=== PATIENT | female | born 1955 | race Caucasian/White ===

== ENCOUNTER 2016-07-06 10:48 | Emergency (ER) | payer OTHER ==
[2016-07-06 10:59] VITALS: BP 155/94; RESP 16
[2016-07-06] MEDS ORDERED: PANTOPRAZOLE SODIUM 40 MG in NS 100 ML IV ONE (11:17)
[2016-07-06] MEDS ORDERED: ONDANSETRON 4 MG/2 ML VIAL IVP ONE (11:17)
[2016-07-06] MEDS ORDERED: NS 1,000 ML IV ONE (11:17)
--- NOTE | 2016-07-06 11:21 | EDPHY ---
H & P Time Seen by Provider: 07/06/16 11:01 HPI/ROS: CHIEF COMPLAINT: Vomiting, diarrhea, headache HISTORY OF PRESENT ILLNESS: 61-year-old female presents to the emergency department by private vehicle with multiple episodes of vomiting and diarrhea. Symptoms started around 9:00 p.m. last night. She initially had some watery diarrhea followed by 3 episodes of vomiting. She still feels nauseous. She denies blood in her stool, melena or hematemesis. No known ill contacts. She is also complaining of diffuse headache with pain behind her left eye. Patient has a history of headaches which she believes are tension in origin. She feels that this is the same typical headache that she gets and she typically has pain behind her left eye when she does get headaches. She reports no trauma. No neck pain. She denies feeling lightheaded or dizzy. Denies chest pain or difficulty breathing. The patient was scheduled to go to [place] today and is requesting a note for the airlines. REVIEW OF SYSTEMS: Constitutional: No fever, no chills. Eyes: No double or blurry vision. ENT: No sore throat. Respiratory: No cough, no shortness of breath. Cardiac: No chest pain. Gastrointestinal: Vomiting, diarrhea Genitourinary: No dysuria. Musculoskeletal: No neck or back pain. Skin: No rashes. Neurological: headache. Past Medical/Surgical History: Stage IV breast cancer 1994, mastectomy, hiatal hernia Social History: Single and lives in [place] Smoking Status: Never smoked Physical Exam: General Appearance: Alert, no distress. 155/94, heart rate 101, 94% on room air , afebrile, nontoxic-appearing. Mentating normally and answering questions appropriately. Eyes: Pupils equal and round. Extraocular motions are all intact. ENT: Mouth: Mucous membranes moist. Respiratory: No wheezing, rhonchi, or rales, lungs are clear to auscultation. Cardiovascular: Regular rate and rhythm. Gastrointestinal: Abdomen is soft and nontender, no masses, no rebound or guarding, bowel sounds normal. No CVA tenderness bilaterally. Neurological: Alert and oriented x 3, cranial nerves II through XII grossly intact Skin: Warm and dry, no rashes. Musculoskeletal: Nontender to palpate along the cervical, thoracic or lumbar spine. Neck is supple. Extremities: Full range of motion and no peripheral edema. Psychiatric: Patient is oriented X 3, there is no agitation. Constitutional: Initial Vital Signs Temperature (C) 36.7 C 07/06/16 10:56 Heart Rate 101 H 07/06/16 10:56 Respiratory Rate 16 07/06/16 10:56 Blood Pressure 155/94 H 07/06/16 10:56 O2 Sat (%) 94 07/06/16 10:56 O2 Delivery Mode Room Air Allergies/Adverse Reactions: No Known Allergies Allergy (Unverified 07/14/11 17:54) Home Medications: Medication Instructions Recorded Letrozole [Femara] 0 mg PO DAILY 07/14/11 Calcium6 Daily 11/24/11 Herbals/Supplements -Info Only 1 each PO AD 11/24/11 Hydrocodone/APAP 5/325 [[place] 1 - 2 tab PO Q4PRN #20 tab 11/24/11 5/325 (*)] LORazepam [Ativan 0.5 mg (RX)] 0.5 mg PO HS PRN 11/24/11 Venlafaxine Xr [Effexor Xr 75MG 75 mg PO DAILY 11/24/11 (RX)] oxyCODONE/APAP 5/325 [Percocet 1 tab PO Q4-6PRN PRN #20 tab 11/24/11 5/325 (*)] Ondansetron Odt [Zofran Odt] 4 mg PO Q4PRN #8 tab 07/06/16 Medical Decision Making ED Course/Re-evaluation: 61-year-old female presents to the emergency department with multiple episodes of vomiting and diarrhea since 9:00 p.m. last night. Clinically she appears dehydrated. An IV has been established the patient received IV normal saline. Laboratory studies are pending. The patient has a history of intermittent headaches which she believes is related to tension. She has had this same type of headache in the past. She felt that was a gradual in onset and has had the pain associated with the left eye in the past with headaches as well. The patient did not want any imaging studies. I feel that this is reasonable given that she has had these symptoms many times in the past. Patient has a normal neurologic examination. Patient received IV normal saline and 4 mg of Zofran. She was feeling much better. Her headache completely resolved. She is no longer feeling nauseous and was tolerating p.o. fluids. She is comfortable being discharged home. She was requesting a note for her missed flight today. Differential Diagnosis: Including but not limited to viral gastroenteritis, dehydration, gastritis, acute appendicitis Headache including but not limited to subarachnoid hemorrhage, migraine headache , tension headache and infectious causes such as meningitis, pharyngitis and sinusitis. - Data Points Laboratory Results: Laboratory Results 07/06/16 11:25 07/06/16 11:25 07/06/16 07/06/16 11:25 11:25 WBC 7.04 10^3/uL 10^3/uL (3.80-9.50) RBC 5.02 10^6/uL 10^6/uL (4.18-5.33) Hgb 16.0 g/dL g/dL (12.6-16.3) Hct 46.2 % % (38.0-47.0) MCV 92.0 fL fL (81.5-99.8) MCH 31.9 pg pg (27.9-34.1) MCHC 34.6 g/dL g/dL (32.4-36.7) RDW 13.3 % % (11.5-15.2) Plt Count 195 10^3/uL 10^3/uL (150-400) MPV 8.8 fL fL (8.7-11.7) Neut % (Auto) 73.1 % % (39.3-74.2) Lymph % (Auto) 19.0 % % (15.0-45.0) [place] % (Auto) 6.3 % % (4.5-13.0) Eos % (Auto) 0.6 % % (0.6-7.6) Baso % (Auto) 0.6 % % (0.3-1.7) Nucleat RBC Rel Count 0.0 % % (0.0-0.2) Absolute Neuts (auto) 5.15 10^3/uL 10^3/uL (1.70-6.50) Absolute Lymphs (auto) 1.34 10^3/uL 10^3/uL (1.00-3.00) Absolute Monos (auto) 0.44 10^3/uL 10^3/uL (0.30-0.80) Absolute Eos (auto) 0.04 10^3/uL 10^3/uL (0.03-0.40) Absolute Basos (auto) 0.04 10^3/uL 10^3/uL (0.02-0.10) Absolute Nucleated RBC 0.00 10^3/uL 10^3/uL (0-0.01) Immature Gran % 0.4 % % (0.0-1.1) Immature Gran # 0.03 10^3/uL 10^3/uL (0.00-0.10) Sodium 139 mEq/L mEq/L (134-144) Potassium 4.7 mEq/L mEq/L (3.5-5.2) Chloride 106 mEq/L mEq/L (97-110) Carbon Dioxide 22 mEq/l mEq/l (22-31) Anion Gap 11 mEq/L mEq/L (8-16) BUN 25 mg/dL H mg/dL (7-23) Creatinine 0.7 mg/dL mg/dL (0.6-1.0) Estimated GFR > 60 Glucose 106 mg/dL H mg/dL (70-100) Calcium 9.7 mg/dL mg/dL (8.5-10.4) Medications Given: Discontinued Medications Sodium Chloride (Ns) 1,000 mls @ 0 mls/hr IV ONCE ONE PRN Reason: Wide Open Stop: 07/06/16 11:18 Last Admin: 07/06/16 11:40 Dose: 1,000 mls Pantoprazole Sodium 40 mg/ (Sodium Chloride) 100 mls @ 200 mls/hr IV EDNOW ONE Stop: 07/06/16 11:46 Last Admin: 07/06/16 11:51 Dose: 100 mls Ondansetron HCl (Zofran) 4 mg IVP EDNOW ONE Stop: 07/06/16 11:18 Last Admin: 07/06/16 11:51 Dose: 4 mg Departure - Departure Disposition: Home, Routine, Self-Care Clinical Impression: Acute gastroenteritis Condition: Good Instructions: Gastroenteritis (ED) Additional Instructions: Clear liquids and slowly advance diet as tolerated. Return to the emergency department if you developed recurring vomiting, diarrhea, or if you feel worse in any way. Referrals: Kenya Francis MD [Medical Doctor] - 2-3 days, if not improved ( Primary care provider javascript application developer) Stand Alone Forms: Airline Excuse Prescriptions: Ondansetron Odt [Zofran Odt] 4 mg PO Q4PRN #8 tab
[2016-07-06 11:37] LABS: % IMMATURE GRANULYOCYTES 0.4 % (0.0-1.1); ABSOLUTE IMMATURE GRANULOCYTES 0.03 10^3/uL (0.00-0.10); ADD DIFF? NO; ADD MORPH? NO; ADD SCAN? NO; ATYPICAL LYMPHOCYTE FLAG 10 (0-99); FRAGMENT RBC FLAG 0 (0-99); HEMATOCRIT 46.2 % (38.0-47.0); LEFT SHIFT FLG 0 (0-99); LIPEMIA HEMOLYSIS FLAG 90 (0-99); MEAN CELL HEMOGLOBIN 31.9 pg (27.9-34.1); MEAN CELL HEMOGLOBIN CONCENTR. 34.6 g/dL (32.4-36.7); MEAN PLATELET VOLUME 8.8 fL (8.7-11.7); PLATELET CLUMPS FLAG 0 (0-99); PLATELET COUNT 195 10^3/uL (150-400); RED BLOOD CELL COUNT 5.02 10^6/uL (4.18-5.33); RED CELL DISTRIBUTION WIDTH 13.3 % (11.5-15.2)
[2016-07-06 11:53] LABS: ANION GAP 11 mEq/L (8-16); CALCIUM 9.7 mg/dL (8.5-10.4); CARBON DIOXIDE 22 mEq/l (22-31); CHLORIDE 106 mEq/L (97-110); CREATININE 0.7 mg/dL (0.6-1.0); GLOMERULAR FILTRATION RATE > 60; GLUCOSE 106 mg/dL (70-100); POTASSIUM 4.7 mEq/L (3.5-5.2); SODIUM 139 mEq/L (134-144)
[2016-07-06 13:24] VITALS: PULSE 90; TEMP 98.6; O2SAT 97
== END 2016-07-06 13:25 | disposition home or self-care (01) ==
DX: K52.9 Noninfective gastroenteritis and colitis, unspecified (principal); Z85.3 Personal history of malignant neoplasm of breast
CPT/HCPCS: 96365; 96375; 99284; J2405

== ENCOUNTER 2016-11-05 21:31 | Emergency (ER) | payer OTHER ==
[2016-11-05 21:42] VITALS: TEMP 99.5
[2016-11-05] MEDS ORDERED: KETOROLAC 30 MG/1 ML SDV IVP ONE (22:48)
[2016-11-05] MEDS ORDERED: ONDANSETRON 4 MG/2 ML VIAL IVP ONE (22:48)
[2016-11-05] MEDS ORDERED: NS 1,000 ML IV ONE ×2 (22:48)
--- NOTE | 2016-11-05 22:51 | EDPHY ---
H & P Stated Complaint: LLQ since Thursday with anorexia; Hx of diverticulitis Time Seen by Provider: 11/05/16 22:31 HPI/ROS: HPI The patient presents with 3 days of lower abdominal pain which is greater in her left lower quadrant than the right. It is been constant, achy in nature, does not radiate and feels tender to the touch. She feels nauseated without vomiting. She does not have any diarrhea. She thinks she may be having subjective fevers. She has a history of diverticulitis about 6 years ago when she was living out of state in [place]. She was treated with antibiotics for this and did not require any operation.. REVIEW OF SYSTEMS Constitutional: No fever, no chills. Eyes: No discharge. ENT: No sore throat. Cardiovascular: No chest pain, no palpitations. Respiratory: No cough, no shortness of breath. Gastrointestinal: See HPI Genitourinary: No hematuria. Musculoskeletal: No back pain. Skin: No rashes. Neurological: No headache. PMHx: History of breast cancer, lower back pain PHYSICAL General Appearance: Alert, no distress Eyes: Pupils equal and round no pallor or injection ENT, Mouth: Mucous membranes moist Respiratory: There are no retractions, lungs are clear to auscultation Cardiovascular: Tachycardic with regular rhythm Gastrointestinal: Abdomen is soft with tenderness in the left lower quadrant which is moderate without rebound or guarding Neurological: A&O, moves all extremities Skin: Warm and dry, no rashes Musculoskeletal: Neck is supple non tender Extremities: symmetrical, full range of motion Psychiatric: Patient is oriented X 3, there is no agitation Source: Patient Exam Limitations: No limitations - Personal History Current Tetanus/Diphtheria Vaccine: Yes Tetanus Vaccine Date: 2009 - Medical/Surgical History Hx Asthma: No Hx Chronic Respiratory Disease: No Hx Diabetes: No Hx Cardiac Disease: No Hx Renal Disease: No Hx Cirrhosis: No Hx Alcoholism: No Hx HIV/AIDS: No Hx Splenectomy or Spleen Trauma: No Other PMH: Stage 4 breast ca dx 1994 with bilateral mastectomies. hip and femur Fx repairs. GERD. diverticulitus - Social History Smoking Status: Never smoked Constitutional: Initial Vital Signs Temperature (C) 37.5 C 11/05/16 21:39 Heart Rate 122 H 11/05/16 21:39 Respiratory Rate 15 11/05/16 21:39 Blood Pressure 112/72 11/05/16 21:39 O2 Sat (%) 96 11/05/16 21:39 O2 Delivery Mode Room Air O2 (L/minute) 2 Allergies/Adverse Reactions: No Known Allergies Allergy (Unverified 07/14/11 17:54) Home Medications: Medication Instructions Recorded Letrozole [Femara] 0 mg PO DAILY 07/14/11 Calcium6 Daily 11/24/11 Herbals/Supplements -Info Only 1 each PO AD 11/24/11 Venlafaxine Xr [Effexor Xr 75MG 75 mg PO DAILY 11/24/11 (RX)] oxyCODONE/APAP 5/325 [Percocet 1 tab PO Q4-6PRN PRN #20 tab 11/24/11 5/325 (*)] Ambien 11/05/16 Amoxicillin/Clavulanate Pot 875 mg PO BID #20 tab 11/06/16 [Augmentin 875 MG TAB (*)] Medical Decision Making - Diagnostics Imaging Results: Imaging Impressions Abdomen CT 11/05/16 22:48 Impression: 1. Sigmoid diverticulitis with no visible perforation or abscess. 2. Indeterminate sclerotic lesions most conspicuous in L5 and in the sacrum. Given the patient's history of breast cancer, these are suspicious for metastases. If these lesions have not been previously evaluated on outside imaging, recommend bone scan or PET scan. 3. Additional findings as above. Findings discussed with Rona Chinchilla MD 11/06/2016 at 0:06. Differential Diagnosis: This is a 61-year-old female with past medical history of breast cancer and diverticulitis who presents with 3 days of left lower quadrant abdominal pain associated with nausea and subjective fevers. On exam, she is tachycardic, she has tenderness in the left lower quadrant. Differential diagnosis includes diverticulitis, urinary tract infection, gastroenteritis. In the emergency room, patient was given IV fluids and medication for pain. Labs were checked and revealed a mild leukocytosis. CT scan of her abdomen pelvis performed with IV contrast demonstrates diverticulitis without any abscess. I have explained the results to the patient. I reassessed her and she is feeling much better. I will discharge her with Augmentin for diverticulitis and give her her 1st dose here. I have given her information for Gastroenterology as needed. - Data Points Laboratory Results: Laboratory Results 11/05/16 23:13 11/05/16 23:13 11/05/16 11/05/16 23:13 23:13 WBC 13.90 10^3/uL H 10^3/uL (3.80-9.50) RBC 4.61 10^6/uL 10^6/uL (4.18-5.33) Hgb 14.7 g/dL g/dL (12.6-16.3) Hct 42.6 % % (38.0-47.0) MCV 92.4 fL fL (81.5-99.8) MCH 31.9 pg pg (27.9-34.1) MCHC 34.5 g/dL g/dL (32.4-36.7) RDW 13.4 % % (11.5-15.2) Plt Count 155 10^3/uL 10^3/uL (150-400) MPV 9.3 fL fL (8.7-11.7) Neut % (Auto) 76.6 % H % (39.3-74.2) Lymph % (Auto) 12.4 % L % (15.0-45.0) [place] % (Auto) 10.0 % % (4.5-13.0) Eos % (Auto) 0.2 % L % (0.6-7.6) Baso % (Auto) 0.4 % % (0.3-1.7) Nucleat RBC Rel Count 0.0 % % (0.0-0.2) Absolute Neuts (auto) 10.66 10^3/uL H 10^3/uL (1.70-6.50) Absolute Lymphs (auto) 1.72 10^3/uL 10^3/uL (1.00-3.00) Absolute Monos (auto) 1.39 10^3/uL H 10^3/uL (0.30-0.80) Absolute Eos (auto) 0.03 10^3/uL 10^3/uL (0.03-0.40) Absolute Basos (auto) 0.05 10^3/uL 10^3/uL (0.02-0.10) Absolute Nucleated RBC 0.00 10^3/uL 10^3/uL (0-0.01) Immature Gran % 0.4 % % (0.0-1.1) Immature Gran # 0.05 10^3/uL 10^3/uL (0.00-0.10) Sodium 134 mEq/L mEq/L (134-144) Potassium 4.7 mEq/L mEq/L (3.5-5.2) Chloride 101 mEq/L mEq/L (97-110) Carbon Dioxide 20 mEq/l L mEq/l (22-31) Anion Gap 13 mEq/L mEq/L (8-16) BUN 15 mg/dL mg/dL (7-23) Creatinine 0.8 mg/dL mg/dL (0.6-1.0) Estimated GFR > 60 Glucose 95 mg/dL mg/dL (70-100) Calcium 9.4 mg/dL mg/dL (8.5-10.4) Total Bilirubin 1.5 mg/dL H mg/dL (0.1-1.4) Conjugated Bilirubin 0.4 mg/dL mg/dL (0.0-0.5) Unconjugated Bilirubin 1.1 mg/dL mg/dL (0.0-1.1) AST 36 IU/L IU/L (14-46) ALT 33 IU/L IU/L (9-52) Alkaline Phosphatase 68 IU/L IU/L (38-126) Total Protein 7.1 g/dL g/dL (6.3-8.2) Albumin 4.3 g/dL g/dL (3.5-5.0) Lipase 55.0 IU/L IU/L (23-300) Specimen Hemolysis 100 Medications Given: Discontinued Medications Amoxicillin/Clavulanate Potassium (Augmentin 875mg) 875 mg PO EDNOW ONE PRN Reason: Protocol Stop: 11/06/16 00:51 Last Admin: 11/06/16 01:18 Dose: 875 mg Sodium Chloride (Ns) 1,000 mls @ 0 mls/hr IV EDNOW ONE; Wide Open PRN Reason: Protocol Stop: 11/05/16 22:49 Last Admin: 11/05/16 23:19 Dose: 1,000 mls Sodium Chloride (Ns) 1,000 mls @ 0 mls/hr IV EDNOW ONE; Wide Open PRN Reason: Protocol Stop: 11/05/16 22:49 Last Admin: 11/05/16 23:18 Dose: 1,000 mls Ketorolac Tromethamine (Toradol) 15 mg IVP EDNOW ONE Stop: 11/05/16 22:49 Last Admin: 11/05/16 23:17 Dose: 15 mg Ondansetron HCl (Zofran) 4 mg IVP EDNOW ONE Stop: 11/05/16 22:49 Last Admin: 11/05/16 23:18 Dose: 4 mg Ondansetron HCl (Zofran Odt 4 Mg Prepack#2) 1 btl TAKEHOME EDNOW ONE Stop: 11/06/16 02:13 Last Admin: 11/06/16 02:13 Dose: 1 btl Departure - Departure Disposition: Home, Routine, Self-Care Clinical Impression: Bone lesion Diverticulitis Qualifiers: Diverticulitis site: large intestine Diverticulitis bleeding: without bleeding Diverticulitis complication: without perforation or abscess Qualified Code(s): K57.32 - Diverticulitis of large intestine without perforation or abscess without bleeding Condition: Good Instructions: Diverticulitis (ED), Diverticulitis Diet (ED) Additional Instructions: Please make sure to drink plenty of fluids. Return if your worse in any way. Take the antibiotic as prescribed. You should follow up with your primary care doctor because on your CT scan we did notice that the L5 vertebrae has some damage to it. Referrals: Asia Phillips MD [Primary Care Provider] - As per Instructions Dougie Duvall MD [[facility] [place] Care Provider] - As per Instructions Prescriptions: Amoxicillin/Clavulanate Pot [Augmentin 875 MG TAB (*)] 875 mg PO BID #20 tab
[2016-11-05 23:19] LABS: % IMMATURE GRANULYOCYTES 0.4 % (0.0-1.1); ABSOLUTE IMMATURE GRANULOCYTES 0.05 10^3/uL (0.00-0.10); ADD DIFF? NO; ADD MORPH? NO; ADD SCAN? NO; ATYPICAL LYMPHOCYTE FLAG 0 (0-99); FRAGMENT RBC FLAG 0 (0-99); HEMATOCRIT 42.6 % (38.0-47.0); HEMOGLOBIN 14.7 g/dL (12.6-16.3); LEFT SHIFT FLG 20 (0-99); LIPEMIA HEMOLYSIS FLAG 90 (0-99); MEAN CELL HEMOGLOBIN 31.9 pg (27.9-34.1); MEAN CELL HEMOGLOBIN CONCENTR. 34.5 g/dL (32.4-36.7); MEAN CELL VOLUME 92.4 fL (81.5-99.8); MEAN PLATELET VOLUME 9.3 fL (8.7-11.7); PLATELET CLUMPS FLAG 0 (0-99); PLATELET COUNT 155 10^3/uL (150-400); RED BLOOD CELL COUNT 4.61 10^6/uL (4.18-5.33); RED CELL DISTRIBUTION WIDTH 13.4 % (11.5-15.2)
[2016-11-05 23:30] LABS: ALANINE AMINOTRANSFERASE 33 IU/L (9-52); ALBUMIN 4.3 g/dL (3.5-5.0); ALKALINE PHOSPHATASE 68 IU/L (38-126); ANION GAP 13 mEq/L (8-16); ASPARTATE AMINOTRANSFERASE 36 IU/L (14-46); BILIRUBIN,TOTAL 1.5 mg/dL (0.1-1.4); BILIRUBIN-CONJUGATED 0.4 mg/dL (0.0-0.5); BILIRUBIN-UNCONJUGATED 1.1 mg/dL (0.0-1.1); CALCIUM 9.4 mg/dL (8.5-10.4); CARBON DIOXIDE 20 mEq/l (22-31); CHLORIDE 101 mEq/L (97-110); CREATININE 0.8 mg/dL (0.6-1.0); GLOMERULAR FILTRATION RATE > 60; GLUCOSE 95 mg/dL (70-100); POTASSIUM 4.7 mEq/L (3.5-5.2); SODIUM 134 mEq/L (134-144); SPECIMEN HEMOLYSIS 100; TOTAL PROTEIN 7.1 g/dL (6.3-8.2)
[2016-11-05] MEDS ORDERED: IOPAMIDOL (ISOVUE-300) 100 ML BTL ONE (23:30)
[2016-11-06] MEDS ORDERED: AMOXICILLIN/CLAVULANATE POT 875/125 MG TAB PO ONE (00:50)
[2016-11-06 01:19] VITALS: BP 111/71; PULSE 98; RESP 20; O2SAT 96
[2016-11-06] MEDS ORDERED: ONDANSETRON 4MG PREPACK#2 BTL TAKEHOME ONE ×2 (02:09→02:12)
== END 2016-11-06 02:14 | disposition home or self-care (01) ==
DX: K57.32 Diverticulitis of large intestine without perforation or abscess without bleeding (principal); M89.9 Disorder of bone, unspecified; E86.9 Volume depletion, unspecified; Z85.3 Personal history of malignant neoplasm of breast
CPT/HCPCS: 74177; 96361; 96374; 96375; 99285; J1885; J2405; Q9967

== ENCOUNTER → 2017-10-28 | Outpatient (CLI) | payer OTHER | LOC: FIMAGING 13:07 | PROVIDERS: ATTEND Internal Medicine Cardiovascular Disease | DX: R06.02 Shortness of breath (principal); R60.9 Edema, unspecified ==

== ENCOUNTER → 2017-10-30 | Outpatient (CLI) | payer OTHER ==
[~2017-10-30] MED LIST: IOPAMIDOL (ISOVUE 370) 100 ML BTL IV ONE
== END ==
LOC: FIMAGING 07:54
PROVIDERS: ATTEND Internal Medicine Cardiovascular Disease
DX: R06.02 Shortness of breath (principal); R79.89 Other specified abnormal findings of blood chemistry
CPT/HCPCS: 71275; Q9967

== ENCOUNTER 2017-12-21 17:18 | Emergency (ER) | payer OTHER ==
[2017-12-21] MEDS ORDERED: ONDANSETRON 4 MG/2 ML VIAL IVP ONE (17:31)
[2017-12-21] MEDS ORDERED: KETOROLAC 30 MG/1 ML SDV IVP ONE (17:31)
[2017-12-21] MEDS ORDERED: AMOXICILLIN/CLAVULANATE POT 875/125 MG TAB PO ONE (17:32)
--- NOTE | 2017-12-21 17:34 | EDPHY ---
H & P Stated Complaint: abdominal pain and nausea starting last night Time Seen by Provider: 12/21/17 17:24 HPI/ROS: CHIEF COMPLAINT: Abdominal pain HISTORY OF PRESENT ILLNESS: Patient is a 62-year-old female who comes to the emergency department complaining of abdominal pain in her left lower quadrant very similar to year ago which she was treated for diverticulitis. Her symptoms resolved last time with Augmentin. She has not had any history of abdominal surgeries. No fevers. She feels slightly nauseous but has not vomited. No diarrhea. No blood in her stool. No urinary symptoms. Her symptoms began about 12 hr ago and have been constant. Severity: Moderate Modifying factors: None REVIEW OF SYSTEMS: Constitutional: denies: chills, fever, recent illness, recent injury EENTM: denies: blurred vision, double vision, nose congestion Respiratory: denies: cough, shortness of breath Cardiac: denies: chest pain, irregular heart rate, lightheadedness, palpitations Gastrointestinal/Abdominal: See HPI denies: diarrhea, nausea, vomiting, blood streaked stools Genitourinary: denies: dysuria, frequency, hematuria, pain Musculoskeletal: denies: joint pain, muscle pain Skin: denies: lesions, rash, jaundice, bruising Neurological: denies: headache, numbness, paresthesia, tingling, dizziness, weakness Hematologic/Lymphatic: denies: blood clots, easy bleeding, easy bruising Immunologic/allergic: denies: HIV/AIDS, transplant 10 systems reviewed and negative except as noted EXAM: GENERAL: Well-appearing, well-nourished and in no acute distress. HEAD: Atraumatic, normocephalic. EYES: Pupils equal round and reactive to light, extraocular movements intact, sclera anicteric, conjunctiva are normal. ENT: TMs normal, nares patent, oropharynx clear without exudates. Moist mucous membranes. NECK: Normal range of motion, supple without lymphadenopathy or JVD. LUNGS: Breath sounds clear to auscultation bilaterally and equal. No wheezes rales or rhonchi. HEART: Regular rate and rhythm without murmurs, rubs or gallops. ABDOMEN: Left lower quadrant pain but Soft, nontender, normoactive bowel sounds. No guarding, no rebound. No masses appreciated. BACK: No CVA tenderness, no spinal tenderness, step-offs or deformities EXTREMITIES: Normal range of motion, no pitting or edema. No clubbing or cyanosis. NEUROLOGICAL: Cranial nerves II through XII grossly intact. Normal speech, normal gait. 5/5 strength, normal movement in all extremities, normal sensation , normal reflexes PSYCH: Normal mood, normal affect. SKIN: Warm, dry, normal turgor, no visible rashes or lesions. Source: Patient Exam Limitations: No limitations - Personal History Current Tetanus/Diphtheria Vaccine: Yes Current Tetanus Diphtheria and Acellular Pertussis (TDAP): Yes Tetanus Vaccine Date: 2009 - Medical/Surgical History Hx Asthma: No Hx Chronic Respiratory Disease: No Hx Diabetes: No Hx Cardiac Disease: No Hx Renal Disease: No Hx Cirrhosis: No Hx Alcoholism: No Hx HIV/AIDS: No Hx Splenectomy or Spleen Trauma: No Other PMH: Stage 4 breast ca dx 1994 with bilateral mastectomies. hip and femur Fx repairs. GERD. diverticulitus, CHF - Family History Significant Family History: No pertinent family hx - Social History Smoking Status: Never smoked Alcohol Use: Sober Drug Use: None Constitutional: Initial Vital Signs Temperature (C) 36.2 C 12/21/17 17:21 Heart Rate 112 H 12/21/17 17:21 Respiratory Rate 18 12/21/17 17:21 Blood Pressure 96/78 L 12/21/17 17:21 O2 Sat (%) 94 12/21/17 17:21 O2 Delivery Mode Room Air Allergies/Adverse Reactions: No Known Allergies Allergy (Verified 12/21/17 17:19) Home Medications: Medication Instructions Recorded Letrozole [Femara] 0 mg PO DAILY 07/14/11 Venlafaxine Xr [Effexor Xr 75MG 75 mg PO DAILY 11/24/11 (RX)] Ambien 11/05/16 Amoxicillin/Clavulanate Pot 875 mg PO BID #14 tab 12/21/17 [Augmentin 875Mg] Coreg 12/21/17 Lasix 12/21/17 Losartan Potassium 12/21/17 Medical Decision Making ED Course/Re-evaluation: The patient's exam and history are consistent with the return of diverticulitis. Will obtain lab work and treat but she is declining imaging which I believe is reasonable. We discussed the risks and benefits. 6:15 p.m. the patient is feeling much better. We discussed antibiotic treatment and follow up with her primary in the next 48 hr. We discussed indications for returning here. She continues to decline imaging which I believe is reasonable. Her abdomen remains nontender. Patient does have a few white cells in her urine but has no urinary symptoms. I will send for cultures. Differential Diagnosis: Partial list of the Differential diagnosis considered include but were not limited to; diverticulitis, constipation, obstruction and although unlikely based on the history and physical exam, I also considered ischemia, volvulus, appendicitis, ovarian cyst, kidney stone, urinary tract infection. I discussed these differential diagnoses and the plan with the patient as well as the usual and expected course. The patient understands that the diagnosis is provisional and that in medicine we are not always correct and that further workup is often warranted. Usual and customary warnings were given. All of the patient's questions were answered. The patient was instructed to return to the emergency department should the symptoms at all worsen or return, otherwise to followup with the physician as we discussed. - Data Points Laboratory Results: Laboratory Results 12/21/17 17:40 12/21/17 17:40 12/21/17 12/21/17 12/21/17 18:03 17:40 17:40 WBC 12.21 10^3/uL H 10^3/uL (3.80-9.50) RBC 4.93 10^6/uL 10^6/uL (4.18-5.33) Hgb 15.6 g/dL g/dL (12.6-16.3) Hct 44.2 % % (38.0-47.0) MCV 89.7 fL fL (81.5-99.8) MCH 31.6 pg pg (27.9-34.1) MCHC 35.3 g/dL g/dL (32.4-36.7) RDW 13.6 % % (11.5-15.2) Plt Count 195 10^3/uL 10^3/uL (150-400) MPV 8.8 fL fL (8.7-11.7) Neut % (Auto) 73.3 % % (39.3-74.2) Lymph % (Auto) 16.9 % % (15.0-45.0) [place] % (Auto) 8.4 % % (4.5-13.0) Eos % (Auto) 0.6 % % (0.6-7.6) Baso % (Auto) 0.4 % % (0.3-1.7) Nucleat RBC Rel Count 0.0 % % (0.0-0.2) Absolute Neuts (auto) 8.96 10^3/uL H 10^3/uL (1.70-6.50) Absolute Lymphs (auto) 2.06 10^3/uL 10^3/uL (1.00-3.00) Absolute Monos (auto) 1.02 10^3/uL H 10^3/uL (0.30-0.80) Absolute Eos (auto) 0.07 10^3/uL 10^3/uL (0.03-0.40) Absolute Basos (auto) 0.05 10^3/uL 10^3/uL (0.02-0.10) Absolute Nucleated RBC 0.00 10^3/uL 10^3/uL (0-0.01) Immature Gran % 0.4 % % (0.0-1.1) Immature Gran # 0.05 10^3/uL 10^3/uL (0.00-0.10) Sodium 135 mEq/L mEq/L (135-145) Potassium 3.9 mEq/L mEq/L (3.3-5.0) Chloride 100 mEq/L mEq/L (97-110) Carbon Dioxide 28 mEq/l mEq/l (22-31) Anion Gap 7 mEq/L L mEq/L (8-16) BUN 16 mg/dL mg/dL (7-23) Creatinine 0.8 mg/dL mg/dL (0.6-1.0) Estimated GFR > 60 Glucose 112 mg/dL H mg/dL (70-100) Calcium 9.3 mg/dL mg/dL (8.5-10.4) Urine Color YELLOW Urine Appearance HAZY Urine pH 7.0 (5.0-7.5) Ur Specific [place] 1.014 (1.002-1.030) Urine Protein NEGATIVE (NEGATIVE) Urine Ketones NEGATIVE (NEGATIVE) Urine Blood NEGATIVE (NEGATIVE) Urine Nitrate NEGATIVE (NEGATIVE) Urine Bilirubin NEGATIVE (NEGATIVE) Urine Urobilinogen NEGATIVE EU EU (0.2-1.0) Ur Leukocyte Esterase 1+ H (NEGATIVE) Urine RBC 1-3 /hpf /hpf (0-3) Urine WBC 5-10 /hpf H /hpf (0-3) Ur Epithelial Cells TRACE /lpf /lpf (NONE-1+) Urine Mucus TRACE /lpf /lpf (NONE-1+) Urine Glucose NEGATIVE (NEGATIVE) Medications Given: Discontinued Medications Amoxicillin/Clavulanate Potassium (Augmentin 875mg) 875 mg PO EDNOW ONE PRN Reason: Protocol Stop: 12/21/17 17:33 Last Admin: 12/21/17 17:47 Dose: 875 mg Ketorolac Tromethamine (Toradol) 15 mg IVP EDNOW ONE Stop: 12/21/17 17:32 Last Admin: 12/21/17 17:51 Dose: 15 mg Ondansetron HCl (Zofran) 4 mg IVP EDNOW ONE Stop: 12/21/17 17:32 Last Admin: 12/21/17 17:51 Dose: 4 mg Departure - Departure Disposition: Home, Routine, Self-Care Clinical Impression: Diverticulitis Condition: Fair Instructions: Amoxicillin/Clavulanate Potassium (By mouth), Diverticulitis (ED) Referrals: Asia Phillips MD [Primary Care Provider] - As per Instructions Prescriptions: Amoxicillin/Clavulanate Pot [Augmentin 875Mg] 875 mg PO BID #14 tab
[2017-12-21 17:48] LABS: PLATELET COUNT 195 10^3/uL (150-400)
[2017-12-21 18:39] VITALS: BP 100/72
== END 2017-12-21 18:39 | disposition home or self-care (01) ==
DX: R10.32 Left lower quadrant pain (principal); R11.0 Nausea; Z87.19 Personal history of other diseases of the digestive system
CPT/HCPCS: 96374; 96375; 99284; J1885; J2405

== ENCOUNTER → 2018-06-07 | Outpatient (CLI) | payer OTHER | LOC: FIMAGING 12:49 | DX: Z13.820 Encounter for screening for osteoporosis (principal); M85.88 Other specified disorders of bone density and structure, other site; C50.412 Malignant neoplasm of upper-outer quadrant of left female breast ==